=== PATIENT | male | born 1970 | race Caucasian/White ===

== ENCOUNTER 2017-09-10 20:38 | Inpatient (IN) | payer SELFPAY ==
[~2017-09-10] VITALS: Ht 170.2 cm; Wt 109.3 kg
[2017-09-10 21:18] LABS: HEMATOCRIT 43.9 % (38.0-50.0); MCH 29.6 PG (29.0-34.0); MCHC 34.2 G/DL (30.0-36.0); MCV 86.6 FL (86-99); PLATELET COUNT 155 K/uL (156-360); RBC DIS.WIDTH-CV 13.9 % (11.8-14.6); RBC DIS.WIDTH-SD 43.8 % (39-53); RED BLOOD COUNT 5.07 M/uL (4.00-5.50)
[2017-09-10 21:27] LABS: CHLORIDE 95 mEq/L (99-109); POTASSIUM 2.8 mEq/L (3.7-5.4); SODIUM 133 mEq/L (136-147)
[2017-09-10 21:29] LABS: GLUCOSE 121 mg/dL (70-99)
[2017-09-10 21:33] LABS: CREATININE 0.8 mg/dL (0.6-1.3)
[2017-09-10 21:34] LABS: GFR ESTIMATE (CALCULATED) > 59 mL/min/ (58.99-99999); UREA NITROGEN (BUN) 14 mg/dL (9-23)
[2017-09-11 00:03] LABS: TROP-I INTERPRETATION NEGATIVE; TROPONIN-I < 0.01 ng/mL (0.0-0.30)
[2017-09-11] MEDS ORDERED: NORVASC10 MG PO (05:23)
[2017-09-11] MEDS ORDERED: TOPROL XL50 MG PO (05:23)
[2017-09-11] MEDS ORDERED: LOSARTAN-HCTZ1 EAC1 PO (05:23)
[2017-09-11 06:12] LABS: MAGNESIUM 1.8 mg/dL (1.3-2.7)
[2017-09-11 08:30] LABS: CHLORIDE 99 mEq/L (99-109); POTASSIUM 3.1 mEq/L (3.7-5.4); SODIUM 136 mEq/L (136-147)
[2017-09-11 08:31] LABS: GLUCOSE 151 mg/dL (70-99)
[2017-09-11 08:35] LABS: CREATININE 0.9 mg/dL (0.6-1.3); GFR ESTIMATE (CALCULATED) > 59 mL/min/ (58.99-99999)
[2017-09-11 08:36] LABS: UREA NITROGEN (BUN) 15 mg/dL (9-23)
[2017-09-11] MEDS ORDERED: ASPIRIN EC325 MG PO (10:20)
[2017-09-11 16:00] VITALS: BP 128/81
[2017-09-11 17:02] VITALS: BP 137/92
[2017-09-11 20:11] VITALS: BP 132/80
[2017-09-12 00:06] VITALS: BP 130/84
[2017-09-12 04:11] VITALS: BP 125/88
[2017-09-12 08:29] VITALS: BP 142/96
[2017-09-12 17:12] VITALS: BP 159/87
[2017-09-12 20:17] VITALS: BP 130/78
[2017-09-13] VITALS (7 sets, daily range): BP systolic 117–134; BP diastolic 68–85
[2017-09-13 06:43] LABS: CHLORIDE 99 MEQ/L (99-109); CREATININE 0.7 MG/DL (0.6-1.3); GFR ESTIMATE (CALCULATED) > 59 mL/min/ (58.99-99999); GLUCOSE 125 mg/dL (70-99); POTASSIUM 4.5 MEQ/L (3.7-5.4); SODIUM 139 MEQ/L (136-147); UREA NITROGEN (BUN) 18 mg/dL (9-23)
[2017-09-14 03:56] VITALS: BP 128/83
[2017-09-14 07:10] LABS: BASOPHIL (%) 0.2 % (0-1); EOSINOPHIL (%) 0 % (0-5); HEMOGLOBIN 15.1 G/DL (12.5-16.6); IMMATURE GRANULOCYTE (%) 1.1 % (0.0-0.7); LYMPHOCYTE COUNT 0.7 K/uL (1.0-2.8); MCH 28.7 PG (29.0-34.0); MCHC 32.1 G/DL (30.0-36.0); MCV 89.4 FL (86-99); MONOCYTE (%) 4.3 % (3-12); MONOCYTE COUNT 0.4 K/uL (0-0.8); NEUTROPHIL (%) 87.4 % (45-76); NEUTROPHIL COUNT 8.9 K/uL (1.8-6.4); PLATELET COUNT 200 K/uL (156-360); RBC DIS.WIDTH-CV 13.9 % (11.8-14.6); RBC DIS.WIDTH-SD 45.5 % (39-53); RED BLOOD COUNT 5.26 M/uL (4.00-5.50); WHITE BLOOD COUNT 10.2 K/uL (4.1-10.2)
[2017-09-14 07:35] LABS: CHLORIDE 100 MEQ/L (99-109); CREATININE 0.6 MG/DL (0.6-1.3); GFR ESTIMATE (CALCULATED) > 59 mL/min/ (58.99-99999); GLUCOSE 118 mg/dL (70-99); POTASSIUM 4.4 MEQ/L (3.7-5.4); SODIUM 140 MEQ/L (136-147); UREA NITROGEN (BUN) 21 mg/dL (9-23)
[2017-09-14 08:32] VITALS: BP 170/99
[2017-09-14 10:24] VITALS: BP 120/86
[2017-09-14] MEDS ORDERED: CEFTIN500 MG PO (11:05)
[2017-09-14] MEDS ORDERED: OSELTAMIVIR PHO75 MG PO (11:06)
[2017-09-14] MEDS ORDERED: ADVAIR HFA120 INHALA IH (11:06)
[2017-09-14] MEDS ORDERED: MUCINEX600 MG PO (11:06)
[2017-09-14] MEDS ORDERED: PREDNISONE10 MG PO (11:08)
[2017-09-14 11:50] VITALS: BP 118/84
== END 2017-09-14 13:55 | disposition home or self-care (01) | DRG 189 ==
LOC: EME 20:38 → EDOF 09-11 04:57 → 3EAST 09-11 04:57 → ENRESERV 09-11 05:01 → 3EAST 09-11 15:58
PROVIDERS: Emergency Medicine; Hospitalist; Internal Medicine
DX: J96.01 Acute respiratory failure with hypoxia (principal); J44.0 Chronic obstructive pulmonary disease with (acute) lower respiratory infection; J44.1 Chronic obstructive pulmonary disease with (acute) exacerbation; J10.1 Influenza due to other identified influenza virus with other respiratory manifestations; J20.9 Acute bronchitis, unspecified; E87.6 Hypokalemia; E87.8 Other disorders of electrolyte and fluid balance, not elsewhere classified; E66.9 Obesity, unspecified; E78.5 Hyperlipidemia, unspecified; E87.1 Hypo-osmolality and hyponatremia; F17.200 Nicotine dependence, unspecified, uncomplicated; I10 Essential (primary) hypertension; K76.0 Fatty (change of) liver, not elsewhere classified; Z68.37 Body mass index [BMI] 37.0-37.9, adult; Z79.82 Long term (current) use of aspirin; Q79.1 Other congenital malformations of diaphragm
CPT/HCPCS: 71045; 71046; 71275; 80048; 83735; 83880; 84484; 85025; 85027; 87502; 93005; 93971; 94640; 94640 76; 94644; 94760; 94799; 99281; 99285; J1100; J1650; J2920; J2930; J3475; J3480; J7030